=== PATIENT | female | born 1990 | race Caucasian/White ===

== ENCOUNTER 2019-02-13 23:06 | Emergency (ER) | payer SELFPAY ==
[~2019-02-13] VITALS: Ht 165.1 cm; Wt 62.7 kg
[2019-02-13 23:07] VITALS: BP 144/82
== END 2019-02-14 00:49 | disposition left against medical advice (07) ==
LOC: M ED 23:06
DX: R11.2 Nausea with vomiting, unspecified (principal); Z53.21 Procedure and treatment not carried out due to patient leaving prior to being seen by health care provider

== ENCOUNTER 2019-06-28 09:12 | Outpatient (CLI) | payer OTHER, SELFPAY ==
[~2019-06-28] VITALS: Ht 165.1 cm; Wt 69.3 kg
[2019-06-28 09:29] VITALS: BP 136/97
[2019-06-28] MEDS ORDERED: ACETAMINOPHEN 500 MG TAB PO ONE (09:45)
[2019-06-28] MEDS ORDERED: CYCLOBENZAPRINE 5MG TABLET PO ONE (09:45)
[2019-06-28 09:49] VITALS: BP 124/75
[2019-06-28 10:03] VITALS: BP 133/75
[2019-06-28] MEDS ORDERED: PRENTAB9 PO (10:04)
[2019-06-28] MEDS ORDERED: [UNRECOGNIZED DRUG - OTHER] PO (10:04)
[2019-06-28 10:19] VITALS: BP 127/75
[2019-06-28 10:25] LABS: HEMATOCRIT 35.1 % (36.0-47.0); HEMOGLOBIN 12.3 g/dl (12.0-15.5); MEAN CORPUSCULAR HEMOGLOBIN 35.2 pg (27.0-33.0); MEAN CORPUSCULAR VOLUME 100.6 fl (80.0-96.0); PLATELET COUNT, AUTOMATED 253 10^3/uL (150-450); RED BLOOD COUNT 3.49 10^6/uL (4.00-5.40); WHITE BLOOD COUNT 7.5 10^3/uL (4.0-10.0)
--- NOTE | 2019-06-28 10:32 | REP ---
Clinical: with severe left-sided abdominal pain and guarding. Comparison: None . Findings: Examination demonstrates a single live intrauterine in cephalic presentation. motion is identified by technologist. Placenta is noted posterior and grade III without evidence for placenta previa or abruption. Amniotic fluid volume is normal. Cervix measures 3.4 cm in length and appears closed. No evidence for nuchal cord. Gestational age by LMP 33 weeks 3 days with PORTER 08/13/2019 . FHR equals 153 beats per minute. Amniotic fluid index: 11.5 cm (8.2 - 24.6). Umbilical cord SD ratio: 2.20 (2.00 - 3.00). Impression: Single live advanced gestation in cephalic presentation. No gross abnormalities are identified. Cervix appears closed and amniotic fluid volume appears normal. Electronically Signed by Salvador Bacon MD 06/28/2019 10:24 A
[2019-06-28 10:34] VITALS: BP 128/78
[2019-06-28 10:40] LABS: ALT/SGPT 48 U/L (12-78); BILIRUBIN,TOTAL 0.3 MG/DL (0.2-1.0); CREATININE FOR GFR 0.52 MG/DL (0.55-1.30); GLOMERULAR FILTRATION RATE > 60.0 (>60); LDH LACTATE DEHYDROGENASE 167 U/L (84-246); URIC ACID 1.1 MG/DL (2.6-6.0)
[2019-06-28 10:50] LABS: APPEARANCE, URINE CLOUDY (CLEAR); BACTERIA, URINE AUTO NEGATIVE (NEGATIVE); BILIRUBIN, URINE AUTO NEGATIVE (NEGATIVE); BLOOD, URINE BLOOD NEGATIVE (NEGATIVE); COLOR, URINE AMBER (YELLOW); GLUCOSE, URINE (UA) AUTO 3+ mg/dL (NEGATIVE); KETONE, URINE AUTO NEGATIVE (NEGATIVE); LEUKOCYTE ESTERASE, URINE AUTO NEGATIVE (NEGATIVE); MUCUS, URINE SMALL (NEGATIVE); NITRITE, URINE AUTO NEGATIVE (NEGATIVE); PROTEIN, URINE AUTO NEGATIVE (NEGATIVE); RBC, URINE AUTO 2 /HPF (0-3); SPECIFIC GRAVITY URINE AUTO 1.017 (1.002-1.035); SQUAMOUS EPITHELIAL CELL UR AU 15 /HPF (0-6); UROBILINOGEN, URINE AUTO 0.2 mg/dL (0.0-2.0); WBC, URINE AUTO 2 /HPF (0-3)
--- NOTE | 2019-06-28 17:30 | IPNPDOC ---
Obstetrical Progress Note Date of Service Jun 28, 2019 Subjective 29yo at 33+3wk, uncomplicated , brought to triage via ambulance for 10/10 LUQ pain (when touched, 3/10 at rest). Pt denies taking any medication for this pain. Pt states that her pain started when she woke up today; she is a very active AD [place] and states she probably pulled a muscle. Pt denies trauma or over exertion with physical activity. Pt denies any s/sx of Pre-eclampsia. Pt reports excellent movement; she denies LOF/VB/CTX. Pt denies recent intercourse. O: VSS, some mild range elevated BP, mostly normotensive Pre-E labs WNL VE deferred Pt guarding with palpation Stat OB US to r/o abruption: grossly WNL FHR 140s, +accels, no decels noted CTX: none, some uterine irritability A: Most likely musculoskeletal tenderness; status reassuring P: Rx for tylenol and flexeril while in triage (pt states this did not reduce pain, but made her relax) will write for 6x 5mg tabs of flexeril PRN for pain Pt encouraged to rest and reduce physical activity until pain subsides Pt provided danger precautions and instructions for when to return to LND Pt to f/u with routine OB care Pt discharged home Objective Vital Signs Date Time Temp Pulse Resp B/P (MAP) Pulse Ox O2 Delivery O2 Flow Rate FiO2 06/28/19 10:34 78 16 128/78 (95) 06/28/19 09:29 98.4 KIMBER REID CNM Jun 28, 2019 17:30
== END 2019-06-28 12:25 | disposition home or self-care (01) ==
LOC: M LDO 09:12
PROVIDERS: ATTEND Registered Nurse Maternal Newborn
DX: O26.893 Other specified pregnancy related conditions, third trimester (principal); R10.12 Left upper quadrant pain; Z3A.33 33 weeks gestation of pregnancy
CPT/HCPCS: 36415; 59025; 76815; 76820; 81001; 82247; 82565; 82570; 83615; 84156; 84450; 84460; 84550; 85027; G0378; G0463

== ENCOUNTER 2019-08-20 10:27 | Inpatient (IN) | payer OTHER ==
[2019-08-20] VITALS (10 sets, daily range): BP systolic 115–147; BP diastolic 73–100
[~2019-08-20] VITALS: Ht 165.1 cm; Wt 71.8 kg
[~2019-08-20 10:27] MED LIST: PRENTAB9 PO; [UNRECOGNIZED DRUG - OTHER] PO
[2019-08-20] MEDS ORDERED: LACTATED RINGER'S 1000 ML IV STA (10:46)
[2019-08-20 11:27] LABS: HEMATOCRIT 35.1 % (36.0-47.0); HEMOGLOBIN 12.6 g/dl (12.0-15.5); MEAN CORPUSCULAR HGB CONC 35.9 g/dl (32.0-36.5); MEAN CORPUSCULAR VOLUME 100.3 fl (80.0-96.0); PLATELET COUNT, AUTOMATED 271 10^3/uL (150-450); WHITE BLOOD COUNT 6.6 10^3/uL (4.0-10.0)
--- NOTE | 2019-08-20 11:36 | HPEPDOC ---
Obstetrical History & Physical General Date of Admission Aug 20, 2019 at 10:27 History of Present Illness 29 yo at 41+0 weeks gestation by 9+3 week US on [id number] presents to L&D today or scheduled IOL for late term . Ms. Mcgee reports feeling well today and as no complaints. Today she denies any vaginal bleeding, contractions, or leakage of fluid. She endorses excellent movement. Chief Complaint: Induction of labor Information Provided By: Patient Age: 29 : 1 Term: 0 Pre-term: 0 Abortions: 0 Livin Care Care: Good Care Dating Final EDC: Aug 13, 2019 Final EDC for Daily Update: Aug 13, 2019 Final EDC by: 1st trimester (US) (9+3 week US on [id number] set PORTER of [id number]) 1st Trimester Date: Jan 11, 2019 (9+3 week US on [id number] set PORTER of [id number]) Antepartum Course Diagnos(e)s History of Ulcerative Colitis s/p total colectomy and J pouch formation in 2010. Cured and has had no issues since. 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 Cured. Surgical History: Other (Total colectomy and J pouch formation in 2010.) Family History Significant Family History: Other (Mother had breast cancer at age 50. Patient was BRCA tested and was negative.) Social History Marital Status: Family situation: Spouse/partner home Psychosocial History: No pertinent psych hx * Smoker: non-smoker Alcohol: Denies Imunizations Tdap status: current Influenza Status: current Allergies Coded Allergies: No Known Allergies (Unverified , 02/13/19) Medications Scheduled Ascorbic Acid (C-500) 500 Mg Tablet, 1 TAB PO DAILY No.137/Iron/Folic Acd ( Vitamin Tablet) 1 Each Tablet, 1 TAB PO DAILY Physical Examination Physical Examination GENERAL: Alert and oriented times three. ABDOMEN: Gravid and non-tender to touch. Surgical scars noted on lower abdomen and RUQ. FETUS: Is vertex (VTX) by sterile vaginal examination (SVE), fetus is vertex (VTX) by Jaime. EXTREMITIES: No edema. Bedside TAUS - Cephalic presenting infant. Laboratory Data 24H LABS Laboratory Tests 2 08/20/19 10:38: Serology Scanned Report Hepatitis B Testing CBC/BMP Urine Culture: No Growth Pertinent Laboratoy Data Blood Type: O+ RBC Antibody Screen: Negative HIV: Negative Hepatitis B: Negative Hepatitis C: Unknown Rapid Plasma Reagin: Nonreactive Rubella: Immune Varicella: Immune Chlamydia/Gonorrhea: Negative Group B Streptococcus: Negative Quad Screen Test: Negative Cystic Fibrosis: Negative Glucose Tolerance Test: 123 Anatomy Ultrasound Placenta Location: Posterior Normal Anatomy: Yes Placenta Previa: No Steroid Therapy Steroid Therapy: No Vaginal Examination Dilation: Fingertip Effacement: 50% Station: -3 Cervical Consistency: Firm Cervical Position: Posterior Presentation: Cephalic presentation Position: Vertex (occiput) Assessment Heart Rate (FHR): 125 Variability: Moderate Accelerations: Positive Decelerations: None Tocometer Frequency: irregular Assessment/Plan Assessment 29 yo at 41+0 weeks gestation presents for IOL for late term . Plan Admit for IOL. Apply IV fluids. Regular diet. Candidate for vaginal delivery. No overt evidence of J pouch disruption with attempted vaginal delivery. No issues with ulcerative colitis since colectomy in 2010. Cervix unfavorable. Will start IOL with misoprostol. Patient candidate for epidural when in active labor. Anticipate . DO DEXTER Pandya CHRISTOPHER J. DO Aug 20, 2019 11:36
[2019-08-20] MEDS ORDERED: miSOPROStol 50 MCG 1/2 TAB (S0191) PO ONE (12:00)
[2019-08-20] MEDS ORDERED: miSOPROStol 50 MCG 1/2 TAB (S0191) PO SCH (16:00)
--- NOTE | 2019-08-20 20:19 | IPNPDOC ---
Text Note Date of Service The patient was seen on 08/20/19. NOTE Presented to room for assessment. Ashley is comfortable, but she is feeling some cramping. Cervix: /-3. FHR Cat I. Contractions irregular. Will proceed with another dose of misoprostol. All patient questions answered. DO Long VS,Avi, I+O VS, Avi, I+O Laboratory Tests 08/20/19 11:11 Red Blood Count 3.50 L, Mean Corpuscular Volume 100.3 H, Mean Corpuscular Hemoglobin 36.0 H, Mean Corpuscular Hemoglobin Concent 35.9, Red Cell Distribution Width 11.9 Vital Signs Date Time Temp Pulse Resp B/P (MAP) Pulse Ox O2 Delivery O2 Flow Rate FiO2 08/20/19 18:24 64 128/77 (94) 08/20/19 16:00 18 AVIS RENTERIA DO Aug 20, 2019 20:19
[2019-08-20] MEDS ORDERED: miSOPROStol 25 MCG 1/4 TAB (S0191) PO ONE (20:30)
[2019-08-20 23:20] LABS: HEMATOCRIT 35.7 % (36.0-47.0); HEMOGLOBIN 12.4 g/dl (12.0-15.5); MEAN CORPUSCULAR HEMOGLOBIN 34.9 pg (27.0-33.0); MEAN CORPUSCULAR HGB CONC 34.7 g/dl (32.0-36.5); MEAN CORPUSCULAR VOLUME 100.6 fl (80.0-96.0); PLATELET COUNT, AUTOMATED 269 10^3/uL (150-450); RED BLOOD COUNT 3.55 10^6/uL (4.00-5.40); WHITE BLOOD COUNT 8.9 10^3/uL (4.0-10.0)
[2019-08-21] VITALS (48 sets, daily range): BP systolic 99–154; BP diastolic 55–96
[2019-08-21 00:08] LABS: ALT/SGPT 18 U/L (12-78); BILIRUBIN,TOTAL 0.3 MG/DL (0.2-1.0); CREATININE FOR GFR 0.78 MG/DL (0.55-1.30); GLOMERULAR FILTRATION RATE > 60.0 (>60); LDH LACTATE DEHYDROGENASE 143 U/L (84-246); URIC ACID 2.2 MG/DL (2.6-6.0)
[2019-08-21] MEDS ORDERED: BUTORPHANOL 2 MG/ML INJ (J0595) As Ordered ONE (00:56)
--- NOTE | 2019-08-21 00:56 | IPNPDOC ---
Text Note Date of Service The patient was seen on 08/21/19. NOTE Patient with increasing pain. Requesting analgesia. Cervix: tight 2/80/-3. FHR Cat I. Contractions regular. Will administer stadol. Then will begin pitocin if comfortable. All patient questions answered. DO Long VS,Avi, I+O VS, Avi, I+O Laboratory Tests 08/20/19 11:11 Red Blood Count 3.50 L, Mean Corpuscular Volume 100.3 H, Mean Corpuscular Hemoglobin 36.0 H, Mean Corpuscular Hemoglobin Concent 35.9, Red Cell Distribution Width 11.9 08/20/19 23:01 Red Blood Count 3.55 L, Mean Corpuscular Volume 100.6 H, Mean Corpuscular Hemoglobin 34.9 H, Mean Corpuscular Hemoglobin Concent 34.7, Red Cell Distribution Width 11.8, Aspartate Amino Transf (AST/SGOT) 16, Alanine Aminotransferase (ALT/SGPT) 18, Lactate Dehydrogenase 143, Total Bilirubin 0.3, Uric Acid 2.2 L Vital Signs Date Time Temp Pulse Resp B/P (MAP) Pulse Ox O2 Delivery O2 Flow Rate FiO2 08/20/19 22:46 70 147/100 (116) 08/20/19 16:00 18 AVIS RENTERIA DO Aug 21, 2019 00:56
[2019-08-21] MEDS ORDERED: ONDANSETRON 4MG/2ML VIAL (J2405) IV PRN ×4 (01:00→14:15)
[2019-08-21] MEDS ORDERED: BUTORPHANOL 2 MG/ML INJ (J0595) IV ONE ×2 (01:00→03:15)
[2019-08-21] MEDS ORDERED: LR 1,000 ML IV SCH ×2 (01:20→14:15)
[2019-08-21] MEDS ORDERED: OXYTOCIN DRIP 30 UNITS in APPROPRIATE DILUENT 1 EA IV SCH (01:30)
--- NOTE | 2019-08-21 05:58 | IPNPDOC ---
Text Note Date of Service The patient was seen on 08/21/19. NOTE Presented to room for assessment of progress. Ashley reports significant discomfort. Cervix: 80/-2. FHR Cat I. Contractions regular. Pitocin at 6mU. Will continue to titrate to effect. Patient desires epidural. Will contact anesthesia. DO Long VS,Avi, I+O VS, Fishbone, I+O Laboratory Tests 08/20/19 11:11 Red Blood Count 3.50 L, Mean Corpuscular Volume 100.3 H, Mean Corpuscular Hemoglobin 36.0 H, Mean Corpuscular Hemoglobin Concent 35.9, Red Cell Distribution Width 11.9 08/20/19 23:01 Red Blood Count 3.55 L, Mean Corpuscular Volume 100.6 H, Mean Corpuscular Hemoglobin 34.9 H, Mean Corpuscular Hemoglobin Concent 34.7, Red Cell Distribution Width 11.8, Aspartate Amino Transf (AST/SGOT) 16, Alanine Aminotransferase (ALT/SGPT) 18, Lactate Dehydrogenase 143, Total Bilirubin 0.3, Uric Acid 2.2 L Vital Signs Date Time Temp Pulse Resp B/P (MAP) Pulse Ox O2 Delivery O2 Flow Rate FiO2 08/21/19 03:46 19 08/21/19 03:05 77 154/91 (112) AVIS RENTERIA DO Aug 21, 2019 05:58
[2019-08-21] MEDS ORDERED: FENTANYL 2MCG/ML ROPIVACAINE 0.2% IN 0.9% NACL 100ML IVBAG As Ordered ONE (06:05)
[2019-08-21] MEDS: FENTANYL/ROPIVACAINE/NACL BAG 100 ML EPIDURAL SCH ×2 (07:00→07:18)
[2019-08-21] MEDS ORDERED: LACTATED RINGER'S 1000 ML IV PRN (07:30)
[2019-08-21] MEDS ORDERED: NALOXONE INJ 0.4 MG/1 ML VIAL (J2310) IV PRN ×3 (07:30→13:35)
[2019-08-21] MEDS ORDERED: REFRIGERATOR IV KEYS XX PRN (07:30)
[2019-08-21] MEDS ORDERED: EPIDURAL COMMENT XX SCH (07:30)
[2019-08-21] MEDS ORDERED: diphenhydrAMINE INJ 50MG/ML VIAL (J1200) IV PRN ×2 (07:30→13:35)
[2019-08-21] MEDS ORDERED: EPIDURAL/PCA KEYS XX PRN (07:30)
[2019-08-21] MEDS ORDERED: ePHEDrine SULFATE 25 MG/5 ML(5MG/ML) SYRINGE IV PRN (07:30)
[2019-08-21] MEDS ORDERED: ceFAZolin 2 GM/D5W 50 ML IV BAG (J0690 PER 500MG) As Ordered ONE (12:12)
[2019-08-21] MEDS ORDERED: BICITRA 30ML SOLN UDC As Ordered ONE (12:12)
--- NOTE | 2019-08-21 12:37 | IPNPDOC ---
Text Note Date of Service The patient was seen on 08/21/19. NOTE Consulted by MAJ Harding for evaluation and treatment of patient. Briefly, Ashley is a 29yo is a 41+1 weeks gestation by 9+3 week US on 11Jan2019 admitted for IOL for PPD. She has been having intermittent late decelerations with moderate variability - deceleration were not corrected with interventions of repositioning, IVF, maternal O2. She has been internalized with FSE and IUPC/Amnioinfusion. Her cervix is unchanged over several hours and unable to augment with pitocin. I reviewed the tracing and toco, and given unable to augment and no cervical changes with persistent intermittent late decelerations for longer than 60mins, I recommended to proceed with d elivery for Intolerance of Labor, Persistent Category II, unable to augment and remote from delivery. I discussed R/B/I/A with the patient and informed consent was obtained. I discussed infection, bleeding (including transfusion and transfusions risk), risk of damage to other organs, blood vessels, nerves, risk to baby, risk to future , and general risk of surgery and anesthesia complications. All questions were answered at this time. I reviewed past medical and surgical histories, labs, and labor course. Pertinent Laboratoy Data Blood Type: O+ RBC Antibody Screen: Negative HIV: Negative Hepatitis B: Negative Hepatitis C: Unknown Rapid Plasma Reagin: Nonreactive Rubella: Immune Varicella: Immune Chlamydia/Gonorrhea: Negative Group B Streptococcus: Negative Quad Screen Test: Negative Cystic Fibrosis: Negative Glucose Tolerance Test: 123 Anatomy Ultrasound Placenta Location: Posterior Crystal Estefany, DO. VS,Fishbone, I+O VS, Fishbone, I+O Laboratory Tests 08/20/19 23:01 Red Blood Count 3.55 L, Mean Corpuscular Volume 100.6 H, Mean Corpuscular Hemoglobin 34.9 H, Mean Corpuscular Hemoglobin Concent 34.7, Red Cell Distribution Width 11.8, Aspartate Amino Transf (AST/SGOT) 16, Alanine Aminotransferase (ALT/SGPT) 18, Lactate Dehydrogenase 143, Total Bilirubin 0.3, Uric Acid 2.2 L Vital Signs Date Time Temp Pulse Resp B/P (MAP) Pulse Ox O2 Delivery O2 Flow Rate FiO2 08/21/19 09:24 76 132/86 (101) 08/21/19 08:39 18 08/21/19 07:29 99.3 KALEN RODRIGUEZ DO Aug 21, 2019 12:37
[2019-08-21] MEDS ORDERED: AZITHROMYCIN INJ 500 MG, VIAL MATE ADAPTER 1 EACH in D5W 250 ML IV ONE (13:00)
[2019-08-21] MEDS ORDERED: BICITRA 30ML SOLN UDC PO ONE (13:00)
[2019-08-21] MEDS ORDERED: MORPHINE PRES-FREE INJ 10 MG/10 ML VIAL (J2274) As Ordered ONE (13:14)
[2019-08-21] MEDS ORDERED: PROPOFOL 200 MG/20 ML VIAL As Ordered ONE (13:32)
[2019-08-21] MEDS ORDERED: NALBUPHINE HCL 10 MG/ML AMP (J2300) IV PRN (13:35)
[2019-08-21] MEDS ORDERED: METOCLOPRAMIDE INJ 10MG/2ML VIAL (J2765) IV PRN (13:35)
[2019-08-21 13:51] LABS: CORD GAS ABE A -7.2; CORD GAS HCO3 A 21.9 MEQ/L; CORD GAS O2 SAT A 57.4 %; CORD GAS PCO2 A 57.6 mmHg; CORD GAS PH A 7.198 UNITS; CORD GAS PO2 A 33.7 mmHg; CORD GAS SBC A 17.7 MEQ/L; CORD GAS TCO2 A 23.7 MEQ/L
[2019-08-21 13:52] LABS: CORD GAS ABE V -4.9; CORD GAS HCO3 V 21.1 MEQ/L; CORD GAS O2 SAT V 73.5 %; CORD GAS PCO2 V 42.5 mmHg; CORD GAS PH V 7.314 UNITS; CORD GAS PO2 V 35.4 mmHg; CORD GAS SBC V 19.9 MEQ/L; CORD GAS TCO2 V 22.4 MEQ/L
[2019-08-21] MEDS ORDERED: fentaNYL 100 MCG/2 ML INJECTION (J3010) IV PRN (14:15)
[2019-08-21] MEDS ORDERED: DOCUSATE SODIUM 100 MG CAP PO PRN (14:15)
[2019-08-21] MEDS ORDERED: oxyCODONE 5MG TAB PO PRN (14:15)
[2019-08-21] MEDS ORDERED: PROMETHAZINE 25 MG TAB PO PRN (14:15)
[2019-08-21] MEDS ORDERED: KETOROLAC 30 MG/ML VIAL (J1885) IV PRN (14:15)
[2019-08-21] MEDS ORDERED: PERCOCET 5MG/325MG TAB PO PRN (14:15)
[2019-08-21] MEDS ORDERED: RHOGAM 300 MCG (1500 IU) INJ (J2790) IM SCH (14:15)
[2019-08-21] MEDS ORDERED: MEASLES,MUMPS,RUBELLA VACCINE INJ (MMR-II) (90707) SC SCH (14:15)
[2019-08-21] MEDS ORDERED: OXYTOCIN 30 UNITS IN 0.9% NaCl 500ML IV BAG (J2590) As Ordered ONE (14:25)
--- NOTE | 2019-08-21 14:43 | DNPDOC ---
[facility] Delivery Note Delivery Note DATE OF DELIVERY: 21Aug2019 PREDELIVERY DIAGNOSIS: 1. Intolerance of Labor, Remote from Delivery 2. Single Intrauterine at 41+1wks 3. History of Ulcerative Colitis 4. History of Total Colectomy POST DELIVERY DIAGNOSIS: 1. Intolerance of Labor, Remote from Delivery 2. Single Intrauterine at 41+1wks 3. History of Ulcerative Colitis 4. History of Total Colectomy PROCEDURE: Primary Low Transverse Section MARKETING OPERATIONS ASSOCIATE: Dr. Sia Rodriguez LINTING MACHINE OPERATOR: Dr. Morris Welch ESTIMATED BLOOD LOSS: 600 mL. FINDINGS: 7 pound 5 ounce (3330gm) Female , Score 8/9, No nuchal cord. DELIVERY SUMMARY: See Operative Note Dictation #: [id number] SIA RODRIGUEZ DO Aug 21, 2019 14:43
[2019-08-21] MEDS ORDERED: OXYTOCIN DRIP 30 UNITS in APPROPRIATE DILUENT 1 EA IV ONE (14:45)
[2019-08-21] MEDS ORDERED: SLF 3 ML SYR IV PRN (16:15)
[2019-08-21] MEDS: KETOROLAC 30 MG/ML VIAL (J1885) IV SCH ×2 (16:33→22:44)
[2019-08-21] MEDS ORDERED: ACETAMINOPHEN 500 MG TAB PO ONE (17:30)
[2019-08-21] MEDS: SLF 3 ML SYR IV SCH (22:44)
[2019-08-22 02:21] VITALS: BP 111/63
[2019-08-22] MEDS: KETOROLAC 30 MG/ML VIAL (J1885) IV SCH ×2 (04:51→10:40)
[2019-08-22] MEDS: SLF 3 ML SYR IV SCH ×2 (04:51→21:40)
[2019-08-22] MEDS ORDERED: NS 1,000 ML IV ONE (06:00)
[2019-08-22 06:33] VITALS: BP 106/56
--- NOTE | 2019-08-22 07:17 | IPNPDOC ---
Progress Note Date of Service: Aug 22, 2019 Day#: 1 Progress Note SUBJECT: Ashley is a 29yo is a [id number] status post uncomplicated primary low transverse section at 41+1wks for intolerance of labor (persistent Category II tracing), remote from delivery on 21Aug2019 of a female infant 7 pounds 5 ounces (3330 grams), doing well day # 1. She has been ambulating, voiding spontaneously without issue and tolerating regular diet. Breast feeding. Reports lochia is like a normal period. Reports some c ramping with , otherwise pain is controlled on medications. Denies any pain. No Flatus yet. OBJECTIVE: VITAL SIGNS: Within normal limits, afebrile (isolated fever @ 1700 [id number]). Alert and oriented. No increased work of breathing. Heart rate: No peripheral edema. Abdomen: Fundus firm at U-1. Soft, NTTP. Incision: c/d/i. ASSESSMENT: Ashley is a 29yo is a [id number] status post uncomplicated primary low transverse section at 41+1wks for intolerance of labor (persistent Category II tracing), remote from delivery on 21Aug2019. Vitals within normal limits, afebrile (since 1700 @ [id number]), hemodynamically stable with no evidence of infection. PLAN: 1. Continue routine /post care 2. Motrin, Tylenol, Percocet for pain control 3. Encourage breast feeding and ambulation. 4. [Paragard] for contraception at 6 week appointment. 5. Encouraged hydration. 6. Regular Diet as tolerated. 7. Discharge to home tomorrow. Sia Rodriguez, DO VS, I&O, 24H, Avi Vital Signs/I&O Vital Signs Date Time Temp Pulse Resp B/P (MAP) Pulse Ox O2 Delivery O2 Flow Rate FiO2 08/22/19 06:33 98.7 71 16 106/56 (73) 96 I&O- Last 24 Hours up to 6 AM 08/22/19 05:59 Intake Total 4675 ml Output Total 4600 ml Balance 75 ml Laboratory Data 24H LABS Laboratory Tests 2 08/21/19 13:11: Cord Arterial Blood pH 7.198, Cord Arterial Blood PCO2 57.6, Cord Arterial Blood PO2 33.7, Cord Arterial Blood HCO3 21.9, Cord Arterial Blood Total CO2 23.7, Cord Arterial Blood Base Excess -7.2, Cord Arterial Base Excess (Standard 17.7, Cord Arterial Bld Oxygen Saturation 57.4, Cord Venous Blood pH 7.314, Cord Venous Blood PCO2 42.5, Cord Venous Blood PO2 35.4, Cord Venous Blood HCO3 21.1, Cord Venous Blood Total CO2 22.4, Cord Venous Base Excess (Actual) -4.9, Cord Venous Base Excess (Standard) 19.9, Cord Venous Blood Oxygen Saturation 73.5 SIA RODRIGUEZ DO Aug 22, 2019 07:17
[2019-08-22 07:20] LABS: HEMATOCRIT 28.2 % (36.0-47.0); MEAN CORPUSCULAR HEMOGLOBIN 35.4 pg (27.0-33.0); MEAN CORPUSCULAR HGB CONC 35.1 g/dl (32.0-36.5); MEAN CORPUSCULAR VOLUME 100.7 fl (80.0-96.0); PLATELET COUNT, AUTOMATED 201 10^3/uL (150-450); WHITE BLOOD COUNT 12.2 10^3/uL (4.0-10.0)
[2019-08-22 07:28] LABS: HEMOGLOBIN 9.9 g/dl (12.0-15.5)
[2019-08-22] MEDS: PRENATAL VITAMINS CHEWABLE TABLET PO SCH (09:00)
[2019-08-22 10:00] VITALS: BP 116/67
--- NOTE | 2019-08-22 11:14 | RO ---
DATE OF OPERATION: 08/21/2019 PREPROCEDURE DIAGNOSES: 1. intolerance of labor, remote from delivery. 2. Single intrauterine at 41 weeks and 1 day. 3. History of ulcerative colitis. 4. History of total colectomy. POSTPROCEDURE DIAGNOSES: 1. intolerance of labor, remote from delivery. 2. Single intrauterine at 41 weeks and 1 day. 3. History of ulcerative colitis. 4. History of total colectomy. 5. Single live . PROCEDURE: Low transverse section. SURGEON: Captain Freddy Allison [employer] DRIVER: Elvis Welch ESTIMATED BLOOD LOSS: 600 mL URINE OUTPUT: 175 mL. IV FLUIDS: 1750 mL of Lactated Ringer's solution. ANTIBIOTICS: Received 2 gram Ancef, 500 grams azithromycin. MATERIALS TO LAB: Yes - placenta and blood gases. INDICATION: The patient is a 29-year-old (G) 1, she is at 41 and 1 who was admitted to labor and delivery on the 08/20/2019 for induction of labor for pending postdates. She started her induction, she made it to 4 cm today and during her course today was noted to have persistent category II tracing that was unable to be corrected with conservative measures with moderate variability over more than 60 minutes time. Discussed that given that her cervix has been unchanged we are unable to augment her labor at this time given the intermittent late decelerations. Discussed recommendations for proceeding with a low transverse section. Patient's informed consent was obtained and all questions were answered at this time. ANESTHESIA: OPERATIVE FINDING: Low transverse Pfannenstiel and fascial incision, low transverse incision, clear amniotomy, atraumatic delivery of the infant and hemostatic closure. Unable to visualize ovaries and tubes at this time due to unable to exteriorize. Patient is a TOLAC candidate. DESCRIPTION OF PROCEDURE: The risks, benefits, indications, and alternatives of the procedure were reviewed with the patient and informed consent was obtained. The patient was taken to the operating room where epidural anesthesia was obtained with satisfactory coverage. She was then prepped and draped in a normal sterile fashion and placed in the dorsal supine position with a leftward tilt. Decker catheter was placed prior to this and was noted to be functioning at the time. A time-out was performed which the patient's identify and planned procedure were verified with the operative team. A Pfannenstiel skin incision was made with a scalpel carried down to the level of the fascia. The fascia was then incised on both sides and extended laterally with Romero scissors. The superior aspect of the fascia incision was grasped with Clara clamps, elevated, and the underlying rectus muscle was dissected off aided with sharp dissection with both scalpel and Romero scissors. Attention was then turned to the inferior aspect of the incision which in a similar fashion the rectus muscle was dissected off with Romero scissors. The rectus muscles were then in the midline with Anita clamps and the peritoneum was entered sharply. The peritoneal incision was then extended lateral manually and a bladder blade was placed with good visualization of the bladder. The vesicouterine peritoneum was identified and using Metzenbaum scissors a bladder flap was created and then the bladder blade was reinserted to protect the bladder. The lower uterine segment was incised in a transverse fashion with a scalpel. The uterine incision was then extended laterally manually. The amniotic sac was artificially ruptured and clear fluid. The was in the cephalic position and delivered atraumatically with the aid of a vacuum with one pull without popoff. The body delivered atraumatically. The cord was then doubled clamped and cut and the was handed off to the awaiting forge operator helper. Blood gases were obtained. The placenta was then removed with gentle traction. The uterus was then cleared of all clot and debris. The uterus was found to be posteriorly adhered to the posterior cul-de-sac due to prior surgery so the uterus was not externalized. The uterine incision was then repaired with 0 Vicryl in a running locking fashion. A second layer of 0 Vicryl was used to imbricate viscerotomy with good hemostasis noted. The pericolic gutters were cleared of all clot and debris. The uterine incision was again inspected and noted to be hemostatic. The bladder blade was removed and the muscle belly and fascia were inspected and noted to be hemostatic. The peritoneum was re-approximated with 2-0 Vicryl in a running fashion then the fascia closure was re-approximated with 0 Vicryl in a running fashion. The subcutaneous layer was cleaned and the skin was closed with 4-0 Monocryl in a subcuticular fashion. The incision was then dressed with Steri-Strips and a pressure dressing. A bimanual was performed with good uterine tone and minimal vaginal bleeding. The patient tolerated the procedure. Sponge, laps, and needle counts were correct times two. The patient was taken to the recovery room in stable condition. ABIODUN
[2019-08-22] MEDS: SIMETHICONE 80 MG CHEW TAB PO PRN ×2 (11:51→20:35)
[2019-08-22 14:00] VITALS: BP 115/61
[2019-08-22 18:00] VITALS: BP 127/79
[2019-08-22] MEDS: IBUPROFEN 800 MG TAB PO SCH (18:08)
[2019-08-22] MEDS: ACETAMINOPHEN TAB 650MG DOSE (2X325MG) PO PRN (21:42)
[2019-08-22 22:42] VITALS: BP 116/59
[2019-08-23 02:00] VITALS: BP 122/67
[2019-08-23] MEDS: IBUPROFEN 800 MG TAB PO SCH ×2 (02:30→09:50)
[2019-08-23] MEDS: SLF 3 ML SYR IV SCH (06:00)
[2019-08-23] MEDS: ACETAMINOPHEN TAB 650MG DOSE (2X325MG) PO PRN (06:31)
[2019-08-23 06:39] VITALS: BP 117/62
[2019-08-23] MEDS ORDERED: MIRA3350 PO (08:20)
[2019-08-23] MEDS ORDERED: PERCOCET PO (08:20)
[2019-08-23] MEDS ORDERED: IBUP80TA PO (08:20)
--- NOTE | 2019-08-23 08:30 | OBDS ---
[facility] Obstetrical Discharge Sum. Obstetrical Discharge Summary Career Information Specialist/Provider: KALEN RODRIGUEZ DO Date: Aug 23, 2019 : 1 Term: 1 Pre-term: 0 Abortions: 0 Livin VDRL: Non-Reactive Rh: Positive Rubella: Immune Delivery 08-21-2019 Infant Sex: Female Weight: pounds (7), ounces (5), grams (3330) Anesthesia: Regional Anesthesia A/P, Post Course List any complications Admission diagnosis: 1. Induction of labor for pending post dates 2. Single Intrauterine at 41+1wks 3. History of Ulcerative Colitis 4. History of Total Colectomy Discharge diagnosis: 1. Intolerance of Labor, Remote from Delivery 2. Single Intrauterine at 41+1wks 3. History of Ulcerative Colitis 4. History of Total Colectomy 5. Single Live Condition at Discharge: good Discharge Instructions: Home Activity: as tolerated, no heavy lifting >10lbs Diet: Regular Medications: Percocet, Ibuprofen, Miralax, Ferrous Gluconate Follow-up: 2 week incision check and 6 week follow up Hospital Course: Ashley is a 29yo is a [id number] status post uncomplicated primary low transverse section at 41+1wks for intolerance of labor (persistent Category II tracing) on 21Aug2019. She had a single isolated fever on postoperative day 0, but has been afebrile since. She has remained stable throughout her hospital stay. She has met all criteria for discharge on /postoperative day 2. OBJECTIVE: VITAL SIGNS: Within normal limits, afebrile Alert and oriented. No increased work of breathing. Heart rate: No peripheral edema. Abdomen: Fundus firm at U-1. Soft, NTTP. Incision: c/d/i. ASSESSMENT: Ashley is a 29yo is a [id number] status post uncomplicated primary low transverse section at 41+1wks for intolerance of labor (persistent Category II tracing), remote from delivery on 21Aug2019. Vitals within normal limits, afebrile, hemodynamically stable with no evidence of infection. PLAN: 1. Continue routine /post care 2. Motrin, Tylenol, Percocet for pain control 3. Encourage breast feeding and ambulation. 4. [Paragard] for contraception at 6 week appointment. 5. Encouraged hydration. 6. Regular Diet as tolerated. 7. Discharge to home today. DO JENNIFER Reardon CRYSTAL B. DO Aug 23, 2019 08:30
[2019-08-23] MEDS: PRENATAL VITAMINS CHEWABLE TABLET PO SCH (09:50)
== END 2019-08-23 16:20 | disposition home or self-care (01) | DRG 773 ==
LOC: M LDI 10:27 → M OBS 08-21 15:19
PROVIDERS: ADMIT Obstetrics & Gynecology; ATTEND Obstetrics & Gynecology
PROC: 3E0P7GC Introduction of Other Therapeutic Substance into Female Reproductive, Via Natural or Artificial Opening (ICD-10-PCS; 2019-08-20)
PROC: 10D00Z1 Extraction of Products of Conception, Low, Open Approach (ICD-10-PCS; principal; 2019-08-21 12:14)
DX: O48.0 Post-term pregnancy (principal); Z3A.41 41 weeks gestation of pregnancy; O76 Abnormality in fetal heart rate and rhythm complicating labor and delivery; Z90.49 Acquired absence of other specified parts of digestive tract; Z37.0 Single live birth; O62.0 Primary inadequate contractions

== ENCOUNTER 2023-02-01 12:01 | Emergency (ER) | payer OTHER ==
[~2023-02-01] VITALS: Ht 167.6 cm; Wt 55.9 kg
[~2023-02-01 12:01] MED LIST changes: +IBUP80TA PO; +MIRA3350 PO; +PERCOCET PO
[2023-02-01 17:18] LABS: BASO % 0.5 % (0.0-1.0); EOS # 0.3 10^3/uL (0.0-0.5); EOS % 3.3 % (0.0-3.0); HEMATOCRIT 38.2 % (36.0-47.0); HEMOGLOBIN 12.4 g/dl (12.0-15.5); LYMPH # 2.9 10^3/uL (1.5-5.0); LYMPH % 37.7 % (24.0-44.0); MEAN CORPUSCULAR HEMOGLOBIN 30.8 pg (27.0-33.0); MEAN CORPUSCULAR HGB CONC 32.5 g/dl (32.0-36.5); MEAN CORPUSCULAR VOLUME 94.8 fl (80.0-96.0); MONO # 0.5 10^3/uL (0.0-0.8); MONO % 6.7 % (2.0-8.0); NEUTROPHILS # 3.9 10^3/uL (1.5-8.5); NEUTROPHILS % 51.4 % (36.0-66.0); PLATELET COUNT, AUTOMATED 469 10^3/uL (150-450); RED BLOOD COUNT 4.03 10^6/uL (4.00-5.40); WHITE BLOOD COUNT 7.6 10^3/uL (4.0-10.0)
[2023-02-01 17:39] LABS: C REACTIVE PROTEIN QUANTITATIV < 0.40 MG/DL (<1.0)
[2023-02-01 17:40] LABS: BLOOD UREA NITROGEN 14 MG/DL (9-23); CALCIUM LEVEL 9.2 MG/DL (8.5-10.1); CARBON DIOXIDE LEVEL 28 MMOL/L (20-31); CHLORIDE LEVEL 104 MMOL/L (98-107); CREATININE FOR GFR 0.73 MG/DL (0.55-1.30); GLOMERULAR FILTRATION RATE > 60.0 (>60); GLUCOSE, FASTING 93 MG/DL (60-100); POTASSIUM SERUM 4.8 MMOL/L (3.5-5.1); SODIUM LEVEL 139 MMOL/L (136-145)
[2023-02-01 18:43] LABS: ERYTHROCYTE SEDIMENTATION RATE 26 mm/hr (0-20)
[2023-02-01] MEDS ORDERED: MELO7.5T35 PO (20:29)
[2023-02-01 20:31] VITALS: BP 127/83
== END 2023-02-01 20:36 | disposition home or self-care (01) ==
LOC: M ED 12:01
DX: M25.461 Effusion, right knee (principal)